=== PATIENT | male | born 1960 | race African-American/Black ===

== ENCOUNTER → 2017-08-17 | Outpatient (CLI) | payer BC ==
[~2017-08-17] MED LIST: BARIUM SULFATE 60% 355 ML SUSP PO ONE
--- NOTE | 2017-08-17 11:21 | RAD ---
EXAM: Small bowel follow-through. HISTORY: History of Crohn disease. Prior small bowel resection. Right lower quadrant pain. COMPARISON: None. FINDINGS: Manager Video image was obtained. This demonstrates a normal bowel gas pattern. Barium contrast material was administered orally and followed in its course through the small bowel with fluoroscopy and plain radiographs. Fluoroscopy time 1.8 minutes. 6 fluoroscopic images were obtained. The proximal small bowel and jejunum appear normal without evidence of strictures or dilatation. In the right lower quadrant, there are some angulated loops consistent with adhesions. No longer stricture is identified. There is one moderately dilated loop of small bowel in the right lower quadrant, which appears to be the terminal ileum. This may reflect an lesions proximal and distal to a portion, or short segment strictures. Contrast passes through this loop with peristalsis and there is no complete obstruction. No other small bowel lesions are seen. Small bowel transit time was normal at approximately 1 hour. IMPRESSION: 1. Adhesions versus short segment strictures in the right lower quadrant result in moderate dilatation of one terminal ileal loop. No more proximal dilatation to suggest obstruction. CT could further define the anatomy if there is persistent concern.
== END | disposition home or self-care (01) ==
LOC: RAD 08:29
DX: K50.90 Crohn's disease, unspecified, without complications (principal)
CPT/HCPCS: 74250